=== PATIENT | female | born 1950 | race Caucasian/White ===

== ENCOUNTER → 2017-02-03 | Outpatient (CLI) | payer BC ==
--- NOTE | 2017-02-05 15:41 | MR ---
EXAMINATION: MRI left foot HISTORY: Pain COMPARISON: None TECHNIQUE: Multiplanar and multisequence images obtained of the left foot without contrast. FINDINGS: There is subchondral and periarticular edema within the base of the second and third metat arsals and the adjacent cuneiforms. Mild subchondral cystic changes and joint space narrowing also n oted at this level. There is mildly increased fluid signal within the sinus to are seen. The Lisfran c ligament is grossly preserved. No notable soft tissue swelling. The plantar soft tissues appear no rmal. The visualized tendinous soft tissues are preserved. The talar dome is normal. Early osteoarth ritic changes are noted at the first MTP joint. IMPRESSION: 1. Moderate osteoarthritic changes, and periarticular edema noted at the first and second TMT joints . 2. No definite acute finding. 3. Early osteoarthritic changes noted at the first MTP joint and first
== END ==
LOC: MW.MRI 15:21
PROVIDERS: ATTEND Podiatrist Foot & Ankle Surgery
DX: M79.672 Pain in left foot (principal)
CPT/HCPCS: 73718-26-LT; 73718-LT